=== PATIENT | male | born 1955 | race African-American/Black ===

== ENCOUNTER 2017-09-24 12:52 | Inpatient (IN) | payer OTHER ==
[2017-09-24 14:23] VITALS: BMI 24.2
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
[2017-09-24] MEDS ORDERED: guaiFENesin/D-METHORPHAN HB 10 ML UNIT-DOSE CUPS PO PRN (15:09)
[2017-09-24] MEDS ORDERED: IBUPROFEN 400 MG TABLET (FP) PO PRN (15:09)
[2017-09-24] MEDS ORDERED: ACETAMINOPHEN 325 MG TABLET (FP) PO PRN (15:09)
[2017-09-24] MEDS ORDERED: MENTHOL/PHENOL 1 EACH UD MM PRN (15:09)
[2017-09-24] MEDS ORDERED: hydrOXYzine PAMOATE 50 MG CAPSULE (FP) PO PRN (15:09)
[2017-09-24] MEDS ORDERED: NICOTINE POLACRILEX 2 MG GUM BC PRN (15:09)
[2017-09-24] MEDS ORDERED: MAGNESIUM CITRATE 300 ML BOTTLE PO PRN (15:09)
[2017-09-24] MEDS ORDERED: P-EPHED 60MG/TRIPROLIDI 2.5MG TABLET PO PRN (15:09)
[2017-09-24] MEDS ORDERED: MAGNESIUM HYDROX 2400MG/30ML ORAL SUSPENSION 30 ML CUP PO PRN (15:09)
[2017-09-24] MEDS ORDERED: LOPERAMIDE HCL 2 MG CAPSULE PO PRN (15:09)
[2017-09-24] MEDS ORDERED: MAG HYDROX/AL HYDROX/SIMETH 30 ML UNIT-DOSE CUP PO PRN (15:09)
[2017-09-24] MEDS ORDERED: CYCLOBENZAPRINE HCL 10 MG TABLET (FP) PO PRN (15:13)
[2017-09-24] MEDS ORDERED: chlordiazePOXIDE HCL 25 MG CAPSULE PO PRN (15:21)
[2017-09-24] MEDS ORDERED: METHADONE HCL 10 MG TABLET (FOR DETOX USE ONLY) PO ONE ×2 (15:55→23:00)
[2017-09-24] MEDS: chlordiazePOXIDE HCL 25 MG CAPSULE PO SCH ×2 (17:09→22:51)
[2017-09-24] MEDS: NICOTINE 21 MG/24 HOURS TOPICAL PATCH TD SCH (17:10)
[2017-09-24] MEDS ORDERED: MELATONIN 5 MG TABLETS PO PRN (22:00)
[2017-09-24] MEDS ORDERED: metFORMIN HCL 500 MG TABLET (FP) PO SCH (22:00)
[2017-09-24] MEDS: ATORVASTATIN CA 40 MG TABLET (FP) PO SCH (22:51)
[2017-09-24] MEDS: THIAMINE HCL 100 MG TABLET (FP) PO SCH (22:51)
[2017-09-24] MEDS: cloNIDine HCL 0.1 MG TABLET PO SCH (22:51)
[2017-09-24] MEDS: INSULIN (LEVEMIR) 100 UNITS/ML UNITS SQ SCH (22:54)
[2017-09-25] MEDS: chlordiazePOXIDE HCL 25 MG CAPSULE PO SCH ×4 (05:41→22:56)
[2017-09-25] MEDS: metFORMIN HCL 500 MG TABLET (FP) PO SCH ×2 (07:23→17:17)
[2017-09-25 09:47] LABS: HEMATOCRIT 37.2 % (35.4-49); HEMOGLOBIN 12.6 GM/dL (11.7-16.9); MCH 31.9 pg (25.7-33.7); MCHC 33.7 g/dl (32.0-35.9); MEAN CELL VOLUME 94.6 fl (80-96); PLATELET COUNT 188 K/MM3 (134-434); RBC 3.93 M/mm3 (4.00-5.60); WHITE BLOOD COUNT 7.5 K/mm3 (4.0-10.0)
[2017-09-25] MEDS ORDERED: METHADONE HCL 10 MG TABLET (FOR DETOX USE ONLY) PO SCH (10:00)
[2017-09-25] MEDS: ASPIRIN 81 MG CHEWABLE TABLETS PO SCH (10:51)
[2017-09-25] MEDS: LISINOPRIL 20 MG TABLET (FP) PO SCH (10:51)
[2017-09-25] MEDS: PRENATAL VITAMINS W/ FOLIC ACID TABLET (FP) PO SCH (10:51)
[2017-09-25] MEDS: NICOTINE 21 MG/24 HOURS TOPICAL PATCH TD SCH (10:52)
[2017-09-25] MEDS: cloNIDine HCL 0.1 MG TABLET PO SCH ×2 (10:52→22:55)
--- NOTE | 2017-09-25 11:31 | EKG ---
Test Reason : Blood Pressure : / mmHG Vent. Rate : 072 BPM Atrial Rate : 072 BPM P-R Int : 176 ms QRS Dur : 090 ms QT Int : 382 ms P-R-T Axes : 057 066 070 degrees QTc Int : 418 ms NORMAL SINUS RHYTHM MINIMAL VOLTAGE CRITERIA FOR LVH, MAY BE NORMAL VARIANT BORDERLINE ECG Confirmed by MD NAKIA, NATE ([id number]) on 09/25/2017 11:31:18 AM Referred By: Confirmed By:NATE YEE MD
--- NOTE | 2017-09-25 11:34 | PN ---
[facility] CIWA - CIWA Score Nausea/Vomitin-Mild Nausea/No Vomiting Muscle Tremors: 4-Moderate,w/Arms Extend Anxiety: 4-Mod. Anxious/Guarded Agitation: 4-Moderately Restless Paroxysmal Sweats: 1-Minimal Palms Moist Orientation: 0-Oriented Tacttile Disturbances: 1-Very Mild Itch/Numbness Auditory Disturbances: 0-None Visual Disturbances: 0-None Headache: 1-Very Mild CIWA-Ar Total Score: 16 BHS COWS - Scale Resting Pulse: 0= [place] 80 or Below Sweatin= Chills/Flushing Restless Observation: 1= Difficult to Sit Still Pupil Size: 0= Normal to Room Light Bone or Joint Aches: 2= Severe Diffuse Aches Runny Nose/ Eye Tearin= Runny Nose/Eyes GI Upset > 30mins: 2= Nausea/Diarrhea Tremor Observation of Outstretched Hands: 2= Slight Tremor Visible Yawning Observation: 1= 1-2x During Session Anxiety or Irritability: 2=Irritable/Anxious Goose Flesh Skin: 3=Piloerection COWS Score: 16 [facility] Progress Note (SOAP) Subjective: joint pain body ache sweat tremor restlessness anxiety insists to use own levemir Objective: 09/25/17 11:37 Vital Signs Temperature 97.9 F 09/25/17 09:16 Pulse Rate 63 09/25/17 09:16 Respiratory Rate 16 09/25/17 09:16 Blood Pressure 140/89 09/25/17 09:16 O2 Sat by Pulse Oximetry (%) Laboratory Last Values WBC 7.5 K/mm3 (4.0-10.0) 09/25/17 06:00 RBC 3.93 M/mm3 (4.00-5.60) L 09/25/17 06:00 Hgb 12.6 GM/dL (11.7-16.9) 09/25/17 06:00 Hct 37.2 % (35.4-49) 09/25/17 06:00 MCV 94.6 fl (80-96) 09/25/17 06:00 MCH 31.9 pg (25.7-33.7) 09/25/17 06:00 MCHC 33.7 g/dl (32.0-35.9) 09/25/17 06:00 RDW 13.0 % (11.9-15.9) 09/25/17 06:00 Plt Count 188 K/MM3 (134-434) 09/25/17 06:00 MPV 10.0 fl (7.5-11.1) 09/25/17 06:00 POC Glucometer 194 UNITS (80-120) 09/25/17 05:40 lab noted Assessment: 09/25/17 11:37 withdrawal sx diabetes insulin dependence Plan: continue detox staff will escort the patient to fetch his own levemir waiting for pharmacist verification
[2017-09-25 12:00] LABS: ALBUMIN 3.9 g/dl (3.4-5.0); ANION GAP 5 (8-16); BLOOD UREA NITROGEN 12 mg/dL (7-18); CALCIUM 9.1 mg/dL (8.5-10.1); CHLORIDE 103 mmol/L (98-107); CO2 31 mmol/L (21-32); GLUCOSE,RANDOM 176 mg/dL (74-106); POTASSIUM 4.2 mmol/L (3.5-5.1); SGPT/ALT 24 U/L (12-78); SODIUM 139 mmol/L (136-145)
[2017-09-25 12:02] LABS: ALK PHOS 83 U/L (45-117); BILIRUBIN,TOTAL 0.4 mg/dL (0.2-1.0); CREATININE 0.8 mg/dL (0.7-1.3); SGOT/AST 18 U/L (15-37); TOT PROT 7.6 g/dl (6.4-8.2)
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
[2017-09-25] MEDS: INSULIN (LEVEMIR) 100 UNITS/ML UNITS SQ SCH ×2 (22:56→23:29)
[2017-09-25] MEDS: THIAMINE HCL 100 MG TABLET (FP) PO SCH (22:56)
[2017-09-25] MEDS: ATORVASTATIN CA 40 MG TABLET (FP) PO SCH (22:56)
[2017-09-26] MEDS: chlordiazePOXIDE HCL 25 MG CAPSULE PO SCH ×2 (05:16→10:44)
[2017-09-26] MEDS: metFORMIN HCL 500 MG TABLET (FP) PO SCH ×2 (06:09→16:51)
--- NOTE | 2017-09-26 10:21 | PN ---
S CIWA - CIWA Score Nausea/Vomitin-Mild Nausea/No Vomiting Muscle Tremors: 4-Moderate,w/Arms Extend Anxiety: 3 Agitation: 3 Paroxysmal Sweats: 1-Minimal Palms Moist Orientation: 0-Oriented Tacttile Disturbances: 1-Very Mild Itch/Numbness Auditory Disturbances: 0-None Visual Disturbances: 0-None Headache: 0-None Present CIWA-Ar Total Score: 13 BHS COWS - Scale Resting Pulse: 0= [place] 80 or Below Sweatin= Chills/Flushing Restless Observation: 1= Difficult to Sit Still Pupil Size: 0= Normal to Room Light Bone or Joint Aches: 2= Severe Diffuse Aches Runny Nose/ Eye Tearin= Nasal Congestion GI Upset > 30mins: 2= Nausea/Diarrhea Tremor Observation of Outstretched Hands: 2= Slight Tremor Visible Yawning Observation: 2= >3x During Session Anxiety or Irritability: 2=Irritable/Anxious Goose Flesh Skin: 0=Smooth Skin COWS Score: 13 S Progress Note (SOAP) Subjective: sweat body aches tremor restlessness irritable trouble sleep at night Objective: 09/26/17 10:20 Vital Signs Temperature 96.8 F L 09/26/17 09:17 Pulse Rate 76 09/26/17 09:17 Respiratory Rate 18 09/26/17 09:17 Blood Pressure 130/78 09/26/17 09:17 O2 Sat by Pulse Oximetry (%) Laboratory Last Values WBC 7.5 K/mm3 (4.0-10.0) 09/25/17 06:00 RBC 3.93 M/mm3 (4.00-5.60) L 09/25/17 06:00 Hgb 12.6 GM/dL (11.7-16.9) 09/25/17 06:00 Hct 37.2 % (35.4-49) 09/25/17 06:00 MCV 94.6 fl (80-96) 09/25/17 06:00 MCH 31.9 pg (25.7-33.7) 09/25/17 06:00 MCHC 33.7 g/dl (32.0-35.9) 09/25/17 06:00 RDW 13.0 % (11.9-15.9) 09/25/17 06:00 Plt Count 188 K/MM3 (134-434) 09/25/17 06:00 MPV 10.0 fl (7.5-11.1) 09/25/17 06:00 Sodium 139 mmol/L (136-145) 09/25/17 06:00 Potassium 4.2 mmol/L (3.5-5.1) 09/25/17 06:00 Chloride 103 mmol/L (98-107) 09/25/17 06:00 Carbon Dioxide 31 mmol/L (21-32) 09/25/17 06:00 Anion Gap 5 (8-16) L 09/25/17 06:00 BUN 12 mg/dL (7-18) 09/25/17 06:00 Creatinine 0.8 mg/dL (0.7-1.3) 09/25/17 06:00 Creat Clearance w eGFR > 60 (>60) 09/25/17 06:00 POC Glucometer 155 UNITS (80-120) 09/26/17 05:17 Random Glucose 176 mg/dL (74-106) H 09/25/17 06:00 Calcium 9.1 mg/dL (8.5-10.1) 09/25/17 06:00 Total Bilirubin 0.4 mg/dL (0.2-1.0) 09/25/17 06:00 AST 18 U/L (15-37) 09/25/17 06:00 ALT 24 U/L (12-78) 09/25/17 06:00 Alkaline Phosphatase 83 U/L (45-117) 09/25/17 06:00 Total Protein 7.6 g/dl (6.4-8.2) 09/25/17 06:00 Albumin 3.9 g/dl (3.4-5.0) 09/25/17 06:00 RPR Titer Nonreactive (NONREACTIVE) 09/25/17 06:00 lab noted Assessment: 09/26/17 10:20 withdrawal sx Plan: continue detox
[2017-09-26] MEDS: METHADONE HCL 5 MG TABLET (FOR DETOX USE ONLY) PO SCH (10:44)
[2017-09-26] MEDS: NICOTINE 21 MG/24 HOURS TOPICAL PATCH TD SCH (10:44)
[2017-09-26] MEDS: ASPIRIN 81 MG CHEWABLE TABLETS PO SCH (10:44)
[2017-09-26] MEDS: cloNIDine HCL 0.1 MG TABLET PO SCH ×2 (10:44→22:21)
[2017-09-26] MEDS: LISINOPRIL 20 MG TABLET (FP) PO SCH (10:44)
[2017-09-26] MEDS: PRENATAL VITAMINS W/ FOLIC ACID TABLET (FP) PO SCH (10:44)
[2017-09-26] MEDS ORDERED: INSULIN (NOVOLOG) ASPART 100 UNITS/ML 10ML VIAL ONE (16:36)
[2017-09-26] MEDS: INSULIN SLIDING SCALE (NOVOLOG) 1 VIAL SQ SCH ×2 (16:51→22:22)
[2017-09-26] MEDS: chlordiazePOXIDE 5 MG CAPSULE PO SCH ×2 (16:51→22:21)
[2017-09-26] MEDS: INSULIN (LEVEMIR) 100 UNITS/ML UNITS SQ SCH (22:21)
[2017-09-26] MEDS: ATORVASTATIN CA 40 MG TABLET (FP) PO SCH (22:21)
[2017-09-26] MEDS: THIAMINE HCL 100 MG TABLET (FP) PO SCH (22:21)
[2017-09-27] MEDS: chlordiazePOXIDE 5 MG CAPSULE PO SCH ×2 (06:20→10:30)
[2017-09-27] MEDS: metFORMIN HCL 500 MG TABLET (FP) PO SCH ×2 (06:21→16:57)
[2017-09-27] MEDS: INSULIN SLIDING SCALE (NOVOLOG) 1 VIAL SQ SCH ×4 (06:35→22:08)
--- NOTE | 2017-09-27 09:52 | PN ---
BHS Progress Note (SOAP) Subjective: SWEAT TREMOR RESTLESSNESS BODY PAIN TROUBLE SLEEP AT NIGHT Objective: 09/27/17 09:51 Vital Signs Temperature 97.5 F L 09/27/17 07:58 Pulse Rate 64 09/27/17 07:58 Respiratory Rate 18 09/27/17 07:58 Blood Pressure 116/77 09/27/17 07:58 O2 Sat by Pulse Oximetry (%) Laboratory Last Values WBC 7.5 K/mm3 (4.0-10.0) 09/25/17 06:00 RBC 3.93 M/mm3 (4.00-5.60) L 09/25/17 06:00 Hgb 12.6 GM/dL (11.7-16.9) 09/25/17 06:00 Hct 37.2 % (35.4-49) 09/25/17 06:00 MCV 94.6 fl (80-96) 09/25/17 06:00 MCH 31.9 pg (25.7-33.7) 09/25/17 06:00 MCHC 33.7 g/dl (32.0-35.9) 09/25/17 06:00 RDW 13.0 % (11.9-15.9) 09/25/17 06:00 Plt Count 188 K/MM3 (134-434) 09/25/17 06:00 MPV 10.0 fl (7.5-11.1) 09/25/17 06:00 Sodium 139 mmol/L (136-145) 09/25/17 06:00 Potassium 4.2 mmol/L (3.5-5.1) 09/25/17 06:00 Chloride 103 mmol/L (98-107) 09/25/17 06:00 Carbon Dioxide 31 mmol/L (21-32) 09/25/17 06:00 Anion Gap 5 (8-16) L 09/25/17 06:00 BUN 12 mg/dL (7-18) 09/25/17 06:00 Creatinine 0.8 mg/dL (0.7-1.3) 09/25/17 06:00 Creat Clearance w eGFR > 60 (>60) 09/25/17 06:00 POC Glucometer 82 UNITS (80-120) 09/27/17 06:22 Random Glucose 176 mg/dL (74-106) H 09/25/17 06:00 Calcium 9.1 mg/dL (8.5-10.1) 09/25/17 06:00 Total Bilirubin 0.4 mg/dL (0.2-1.0) 09/25/17 06:00 AST 18 U/L (15-37) 09/25/17 06:00 ALT 24 U/L (12-78) 09/25/17 06:00 Alkaline Phosphatase 83 U/L (45-117) 09/25/17 06:00 Total Protein 7.6 g/dl (6.4-8.2) 09/25/17 06:00 Albumin 3.9 g/dl (3.4-5.0) 09/25/17 06:00 RPR Titer Nonreactive (NONREACTIVE) 09/25/17 06:00 LAB NOTED Assessment: 09/27/17 09:52 WITHDRAWAL SX Plan: CONTINUE DETOX
[2017-09-27] MEDS: PRENATAL VITAMINS W/ FOLIC ACID TABLET (FP) PO SCH (10:29)
[2017-09-27] MEDS: ASPIRIN 81 MG CHEWABLE TABLETS PO SCH (10:29)
[2017-09-27] MEDS: cloNIDine HCL 0.1 MG TABLET PO SCH ×2 (10:29→22:03)
[2017-09-27] MEDS: LISINOPRIL 20 MG TABLET (FP) PO SCH (10:29)
[2017-09-27] MEDS: NICOTINE 21 MG/24 HOURS TOPICAL PATCH TD SCH (10:30)
[2017-09-27] MEDS: METHADONE HCL 5 MG TABLET (FOR DETOX USE ONLY) PO SCH (10:30)
[2017-09-27] MEDS: chlordiazePOXIDE HCL 10 MG CAPSULE PO SCH ×2 (17:44→22:03)
[2017-09-27] MEDS: THIAMINE HCL 100 MG TABLET (FP) PO SCH (22:03)
[2017-09-27] MEDS: ATORVASTATIN CA 40 MG TABLET (FP) PO SCH (22:03)
[2017-09-27] MEDS: INSULIN (LEVEMIR) 100 UNITS/ML UNITS SQ SCH (22:07)
[2017-09-28] MEDS: chlordiazePOXIDE HCL 10 MG CAPSULE PO SCH ×2 (06:15→10:26)
[2017-09-28] MEDS: INSULIN SLIDING SCALE (NOVOLOG) 1 VIAL SQ SCH ×4 (08:15→22:18)
[2017-09-28] MEDS: metFORMIN HCL 500 MG TABLET (FP) PO SCH ×2 (08:20→17:14)
[2017-09-28] MEDS ORDERED: METHADONE HCL 10 MG TABLET (FOR DETOX USE ONLY) PO SCH (10:00)
[2017-09-28] MEDS: NICOTINE 21 MG/24 HOURS TOPICAL PATCH TD SCH (10:25)
[2017-09-28] MEDS: ASPIRIN 81 MG CHEWABLE TABLETS PO SCH (10:26)
[2017-09-28] MEDS: cloNIDine HCL 0.1 MG TABLET PO SCH ×2 (10:26→22:18)
[2017-09-28] MEDS: PRENATAL VITAMINS W/ FOLIC ACID TABLET (FP) PO SCH (10:26)
[2017-09-28] MEDS: LISINOPRIL 20 MG TABLET (FP) PO SCH (10:26)
--- NOTE | 2017-09-28 15:44 | PN ---
BHS Progress Note (SOAP) Subjective: pt without complaints today, awaiting discharge Objective: 09/28/17 15:43 CBC, BMP 09/25/17 06:00 09/25/17 06:00 Vital Signs 09/28/17 14:00 Temperature 97.5 F L Pulse Rate 70 Respiratory 16 Rate Blood Pressure 94/59 pt walking in hallway nl VS grossly nl PE Assessment: 09/28/17 15:43 continue detox protocol- med ending today Plan: pt to be discharge tomorrow
[2017-09-28] MEDS: THIAMINE HCL 100 MG TABLET (FP) PO SCH (22:18)
[2017-09-28] MEDS: ATORVASTATIN CA 40 MG TABLET (FP) PO SCH (22:18)
[2017-09-28] MEDS: INSULIN (LEVEMIR) 100 UNITS/ML UNITS SQ SCH (23:04)
[2017-09-29] MEDS ORDERED: METHADONE HCL 5 MG TABLET (FOR DETOX USE ONLY) PO SCH (06:00)
[2017-09-29] MEDS: INSULIN SLIDING SCALE (NOVOLOG) 1 VIAL SQ SCH (06:07)
[2017-09-29 07:38] VITALS: BP 102/46; PULSE 78; TEMP 96.4
--- NOTE | 2017-09-29 08:25 | PN ---
S Progress Note (SOAP) Subjective: alert,no complaint Objective: 09/29/17 08:22 Vital Signs Temperature 96.4 F L 09/29/17 07:37 Pulse Rate 78 09/29/17 07:37 Respiratory Rate 18 09/29/17 07:37 Blood Pressure 102/46 09/29/17 07:37 O2 Sat by Pulse Oximetry (%) Assessment: 09/29/17 08:22 detox completed,no withdrawal symptom Plan: discharge today,follow up with after care program as arrangement
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
[2017-09-29] MEDS: metFORMIN HCL 500 MG TABLET (FP) PO SCH (09:03)
[2017-09-29] MEDS: LISINOPRIL 20 MG TABLET (FP) PO SCH (09:03)
[2017-09-29] MEDS: NICOTINE 21 MG/24 HOURS TOPICAL PATCH TD SCH (09:03)
[2017-09-29] MEDS: ASPIRIN 81 MG CHEWABLE TABLETS PO SCH (09:03)
[2017-09-29] MEDS: PRENATAL VITAMINS W/ FOLIC ACID TABLET (FP) PO SCH (09:03)
[2017-09-29] MEDS: cloNIDine HCL 0.1 MG TABLET PO SCH (09:03)
== END 2017-09-29 09:26 | disposition home or self-care (01) | DRG 773 ==
LOC: YASAS 12:52 → Y6N 15:40
PROVIDERS: ADMIT Surgery; ATTEND Surgery
PROC: HZ2ZZZZ Detoxification Services for Substance Abuse Treatment (ICD-10-PCS; principal; 2017-09-24)
DX: F11.23 Opioid dependence with withdrawal (principal); F10.230 Alcohol dependence with withdrawal, uncomplicated; F17.210 Nicotine dependence, cigarettes, uncomplicated; F19.24 Other psychoactive substance dependence with psychoactive substance-induced mood disorder; I10 Essential (primary) hypertension; E11.9 Type 2 diabetes mellitus without complications; Z79.4 Long term (current) use of insulin; Z79.84 Long term (current) use of oral hypoglycemic drugs; B18.2 Chronic viral hepatitis C; G47.00 Insomnia, unspecified; R63.4 Abnormal weight loss; Z68.24 Body mass index [BMI] 24.0-24.9, adult; Z87.828 Personal history of other (healed) physical injury and trauma
CPT/HCPCS: 36415; 80053; 82962; 85027; 86593; 93005; 93010; J0735